=== PATIENT | male | born 1940 | race Two or more races ===

== ENCOUNTER 2018-10-06 20:55 | Emergency (ER) | payer SELFPAY ==
[2018-10-06 21:03] VITALS: BP 144/96; PULSE 89; RESP 20; TEMP 97.7; O2SAT 95
--- NOTE | 2018-10-06 21:13 | ED PDOC ---
HPI: General Adult Time Seen by Provider: 10/06/18 21:01 Chief Complaint (Nursing): Medical Clearance History Per: Patient History/Exam Limitations: no limitations Additional History Per: Patient Additional Complaint(s): Hx of HTN, CAD presenting with medical clearance, was brought to ER for high blood pressure. Patient states he did not get to take his medication before being arrested. Has no complaints right now other than feeling nervous: denies chest pain, shortness of breath, headache, or any other symptoms. Denies suicidal or homicidal ideation. Past Medical History Reviewed: Historical Data, Nursing Documentation, Vital Signs Vital Signs: Last Vital Signs Temp 97.7 F 10/06/18 20:59 Pulse 89 10/06/18 20:59 Resp 20 10/06/18 20:59 BP 144/96 H 10/06/18 20:59 Pulse Ox 95 10/06/18 20:59 - Medical History PMH: CAD, HTN - Family History Family History: States: Unknown Family Hx - Allergies Allergies/Adverse Reactions: Allergies Allergy/AdvReac Type Severity Reaction Status Date / Time No Known Allergies Allergy Verified 10/06/18 20:59 Review of Systems ROS Statement: Except As Marked, All Systems Reviewed And Found Negative Physical Exam - Reviewed Nursing Documentation Reviewed: Yes Vital Signs Reviewed: Yes - Physical Exam Appears: Positive for: Well, Non-toxic, No Acute Distress Head Exam: Positive for: ATRAUMATIC, NORMAL INSPECTION, NORMOCEPHALIC Skin: Positive for: Normal Color, Warm, DRY Eye Exam: Positive for: EOMI, Normal appearance, PERRL ENT: Positive for: Normal ENT Inspection Neck: Positive for: Normal, Painless ROM Cardiovascular/Chest: Positive for: Regular Rate, Rhythm Respiratory: Positive for: CNT, Normal Breath Sounds Gastrointestinal/Abdominal: Positive for: Normal Exam, Soft. Negative for: Tenderness Back: Positive for: Normal Inspection Extremity: Positive for: Normal ROM Neurologic/Psych: Positive for: Alert, Oriented - ECG O2 Sat by Pulse Oximetry: 95 Pulse Ox Interpretation: Normal Medical Decision Making Medical Decision MakinPM Patient presenting with "elevated BP" --BP repeated twice, normal --Patient is very well appearing without symptoms --No psychiatric complaints, no psychiatric history, no suicidal or homicidal ideation --Stable for incarceraiton. Disposition - Clinical Impression Clinical Impression: Hypertension - Disposition Referrals: [facility] [Outside] Disposition: Routine/Home Disposition Time: 21:14 Condition: STABLE Additional Instructions: Medically and psychiatrically stable for incarceration. Instructions: General (DC), High Blood Pressure in Adults Forms: [facility] ([place])
== END 2018-10-06 21:20 ==
LOC: H.ER 20:55
DX: I10 Essential (primary) hypertension (principal)